=== PATIENT | male | born 1965 | race Caucasian/White ===

== ENCOUNTER 2018-02-26 11:20 | Observation (INO) | payer MEDICAID ==
[~2018-02-26] VITALS: Ht 182.9 cm; Wt 113.6 kg
[~2018-02-26 11:20] MED LIST: ALBU8HFA PO; AMBR10TA3 PO; ASPI81TA30 PO; DIGO125T97 PO; FURO-150 PO; INDO25CA18 PO; PANT40TA4 PO; POTA8TAB3 PO; PRED20TA PO; TADA5TAB3 PO
[2018-02-26] MEDS ORDERED: iohexol 350MG/ML 100ml bottle IV ONE (11:47)
[2018-02-26 11:58] LABS: INR 1.1 INR; PARTIAL THROMBOPLASTIN TIME 27 SECONDS (22-32); PROTHROMBIN TIME 10.7 SECONDS (9.0-12.0)
[2018-02-26 12:01] LABS: BASOPHILS # (AUTO) 0.1 X10'3 (0-0.2); EOSINOPHILS # (AUTO) 0.2 X10'3 (0-0.9); EOSINOPHILS % (AUTO) 2.6 % (0-6); LYMPHOCYTES # (AUTO) 1.2 X10'3 (1.1-4.8); LYMPHOCYTES % (AUTO) 15.1 % (21-51); MEAN CORPUSCULAR HEMOGLOBIN 30.7 PG (27.0-31.0); MEAN CORPUSCULAR HGB CONC 33.1 % (33.0-36.5); MEAN CORPUSCULAR VOLUME 92.6 FL (78-98); MEAN PLATELET VOLUME 9.8 FL (7.4-10.4); MONOCYTES # (AUTO) 0.6 X10'3 (0-0.9); MONOCYTES % (AUTO) 7.9 % (2-12); NEUTROPHILS # (AUTO) 5.6 X10'3 (1.8-7.7); NEUTROPHILS % (AUTO) 73.4 % (42-75); PLATELET COUNT 200 X10'3 (140-440); RED BLOOD COUNT 6.62 X10'6 (4.70-6.10); RED CELL DISTRIBUTION WIDTH 13.9 % (11.5-14.5); WHITE BLOOD COUNT 7.6 X10'3 (4.5-11.0)
[2018-02-26 12:06] LABS: HEMATOCRIT 61.3 % (42.0-52.0); HEMOGLOBIN 20.3 g/dl (14.0-17.9)
[2018-02-26 12:10] LABS: ALANINE AMINOTRANSFERASE 76 U/L (12-78); ALBUMIN 3.6 G/DL (3.4-5.0); ALBUMIN/GLOBULIN RATIO 1.1 (1.1-1.5); ALKALINE PHOSPHATASE 101 IU/L (46-116); ANION GAP 5 (8-16); ASPARTATE AMINO TRANSFERASE 53 U/L (10-37); BILIRUBIN,TOTAL 1.1 MG/DL (0.1-1.0); BLOOD UREA NITROGEN 15 MG/DL (7-18); BUN/CREATININE RATIO 13.5 (5.4-32.0); CALCIUM 8.8 MG/DL (8.5-10.1); CHLORIDE 102 MMOL/L (99-107); CREATININE 1.11 MG/DL (0.60-1.10); GLUCOSE 123 MG/DL (70-104); SODIUM 139 MMOL/L (135-145); TOTAL CARBON DIOXIDE 32.5 MMOL/L (24-32); eGFR 69 ML/MIN
[2018-02-26 12:14] LABS: TROPONIN I < 0.04 NG/ML (0.0-0.05)
[2018-02-26 12:17] LABS: POTASSIUM 4.3 MMOL/L (3.5-5.1)
[2018-02-26 13:17] LABS: INR 1.1 INR; PARTIAL THROMBOPLASTIN TIME 26 SECONDS (22-32); PROTHROMBIN TIME 10.7 SECONDS (9.0-12.0)
[2018-02-26] MEDS ORDERED: normal saline 1000ML IV soln IVB ONE (14:15)
[2018-02-26] MEDS ORDERED: POTA20PA40 (15:09)
[2018-02-26] MEDS ORDERED: TADA5TAB2 PO (15:09)
[2018-02-26] MEDS ORDERED: LISI-600 PO (15:09)
[2018-02-26] MEDS ORDERED: MELO-102 PO (15:09)
[2018-02-26] MEDS ORDERED: potassium Cl 20 mEq SR tablet PO PRN ×2 (17:10)
[2018-02-26] MEDS ORDERED: potassium Cl 40MEQ/NS 500ml 500 ML IV PRN ×2 (17:10)
[2018-02-26] MEDS ORDERED: magnesium 1gm/100ml D5W IVPB 100 ML IV PRN (17:10)
[2018-02-26] MEDS ORDERED: magnesium Cl slow-release 64mg tablet PO PRN (17:10)
[2018-02-26] MEDS ORDERED: acetaminophen 325mg tablet PO PRN ×2 (17:10)
[2018-02-26] MEDS ORDERED: magnesium hydroxide 30ml (MOM) UD suspension PO PRN (17:10)
[2018-02-26] MEDS ORDERED: magnesium 4gm in 100ml NS 100 ML IV PRN (17:10)
[2018-02-26] MEDS ORDERED: mag hydrox/Alum hydrox/simeth 30ml oral suspension PO PRN (17:10)
[2018-02-26] MEDS ORDERED: ondansetron/PF 4mg/2ml inj IV PRN (17:10)
[2018-02-26] MEDS: normal saline 1000ml 1,000 ML IV SCH ×2 (17:23→20:58)
[2018-02-26 17:57] LABS: HEMOGLOBIN A1C 5.5 % (4.5-6.2)
[2018-02-26] MEDS ORDERED: LORazepam 2 mg/ml vial IV ONE (18:00)
[2018-02-26] MEDS ORDERED: aspirin 81mg tab.chew PO ONE (19:35)
[2018-02-26] MEDS ORDERED: guaiFENesin/codeine phos 10ml UD oral syrup PO ONE (20:15)
[2018-02-26] MEDS ORDERED: albuterol 2.5 MG/3 ML nebule NEB ONE (20:15)
[2018-02-26 21:00] VITALS: BP 158/99
[2018-02-26] MEDS ORDERED: temazepam 15mg capsule PO PRN (21:00)
[2018-02-26] MEDS ORDERED: HYDROmorphone 1 mg/ml syringe IV PRN (21:25)
[2018-02-26] MEDS ORDERED: HYDROcodone/acetaminophen 10/325mg tab PO PRN (21:25)
[2018-02-26] MEDS: morphine 4 MG/ML inj SYRINge IV PRN (21:42)
[2018-02-27] MEDS: morphine 4 MG/ML inj SYRINge IV PRN ×5 (01:55→23:03)
[2018-02-27 02:00] VITALS: BP 139/89
[2018-02-27 06:00] VITALS: BP 136/80
[2018-02-27 06:16] LABS: HEMATOCRIT 54.4 % (42.0-52.0); HEMOGLOBIN 17.9 g/dl (14.0-17.9); MEAN CORPUSCULAR HEMOGLOBIN 30.5 PG (27.0-31.0); MEAN CORPUSCULAR VOLUME 92.7 FL (78-98); MEAN PLATELET VOLUME 9.7 FL (7.4-10.4); PLATELET COUNT 201 X10'3 (140-440); RED BLOOD COUNT 5.87 X10'6 (4.70-6.10); RED CELL DISTRIBUTION WIDTH 14.1 % (11.5-14.5); WHITE BLOOD COUNT 10.8 X10'3 (4.5-11.0)
[2018-02-27 07:30] LABS: ANION GAP 9 (8-16); BLOOD UREA NITROGEN 13 MG/DL (7-18); BUN/CREATININE RATIO 13.5 (5.4-32.0); CALCIUM 8.1 MG/DL (8.5-10.1); CHLORIDE 104 MMOL/L (99-107); CHOL/HDL RATIO 4.7 (0.00-4.99); CHOLESTEROL 180 MG/DL (0-200); CREATININE 0.96 MG/DL (0.60-1.10); GLUCOSE 116 MG/DL (70-104); HDL CHOLESTEROL 38 MG/DL (35-60); LDL CHOLESTEROL 106 MG/DL (50-100); MAGNESIUM 1.9 MG/DL (1.5-2.4); POTASSIUM 3.9 MMOL/L (3.5-5.1); SODIUM 140 MMOL/L (135-145); TOTAL CARBON DIOXIDE 27.2 MMOL/L (24-32); TRIGLYCERIDES 272 MG/DL (20-135); eGFR 82 ML/MIN
[2018-02-27] MEDS: K and/or MAG REPLACEMENT MC SCH (08:00)
[2018-02-27] MEDS: aspirin 325mg tablet PO SCH (09:26)
[2018-02-27] MEDS: digoxin 125mcg (0.125mg) tablet PO SCH (09:28)
[2018-02-27 10:00] VITALS: BP 152/103
[2018-02-27 14:50] VITALS: BP 160/112
[2018-02-27] MEDS ORDERED: hydrALAZINE 20mg/ml inj. IV PRN (15:00)
[2018-02-27] MEDS ORDERED: hydrALAZINE 20mg/ml inj. IV ONE (15:00)
[2018-02-27] MEDS: atorvastatin 20mg tablet PO SCH (15:30)
[2018-02-27] MEDS: lisinopril 20mg tablet PO SCH (15:36)
[2018-02-27 16:19] LABS: CLARITY,URINE CLEAR (Clear); COLOR,URINE YELLOW (Yellow); GLUCOSE, URINE NEGATIVE (Neg); KETONES,URINE NEGATIVE (Neg); LEUKOCYTE ESTERASE ,URINE NEGATIVE (Neg); NITRITES, URINE NEGATIVE (Neg); OCCULT BLOOD,URINE NEGATIVE (Neg); PROTEIN,URINE NEGATIVE (Neg); UA COLLECTION TYPE VOIDED; UROBILINOGEN,URINE 0.2 E.U/dL (0.2-1.0)
[2018-02-27 16:35] VITALS: BP 125/81
[2018-02-27 16:46] LABS: URINE AMPHETAMINE SCREEN NEGATIVE (Neg); URINE BARBITUATE SCREEN NEGATIVE (Neg); URINE BENZODIAZEPINES SCREEN NEGATIVE (Neg); URINE CANNABINOID SCREEN NEGATIVE (Neg); URINE COCAINE SCREEN NEGATIVE (Neg); URINE METHADONE SCREEN NEGATIVE (Neg); URINE OPIATE SCREEN POSITIVE (Neg); URINE PHENCYCLIDINE SCREEN NEGATIVE (Neg)
[2018-02-27 16:53] LABS: ETHANOL < 0.010 GM/DL (0.0-0.010)
[2018-02-27 20:00] VITALS: BP 144/87
[2018-02-27] MEDS: carVEDilol 12.5mg tablet PO SCH (20:05)
[2018-02-27] MEDS: enoxaparin 40mg/0.4ml syringe SUBCUT SCH (20:06)
[2018-02-27] MEDS: sildenafil citrate 20mg tablet PO SCH (21:30)
[2018-02-27] MEDS: normal saline 1000ml 1,000 ML IV SCH (21:42)
[2018-02-28] VITALS: BP 156/90
[2018-02-28 04:00] VITALS: BP 155/94
[2018-02-28] MEDS: morphine 4 MG/ML inj SYRINge IV PRN (05:38)
[2018-02-28 06:00] VITALS: BP 155/94
[2018-02-28 06:59] LABS: HEMATOCRIT 53.4 % (42.0-52.0); HEMOGLOBIN 17.8 g/dl (14.0-17.9); MEAN CORPUSCULAR HEMOGLOBIN 30.8 PG (27.0-31.0); MEAN CORPUSCULAR HGB CONC 33.3 % (33.0-36.5); MEAN CORPUSCULAR VOLUME 92.6 FL (78-98); MEAN PLATELET VOLUME 9.7 FL (7.4-10.4); PLATELET COUNT 187 X10'3 (140-440); RED BLOOD COUNT 5.77 X10'6 (4.70-6.10); RED CELL DISTRIBUTION WIDTH 13.9 % (11.5-14.5); WHITE BLOOD COUNT 10.6 X10'3 (4.5-11.0)
[2018-02-28] MEDS: carVEDilol 12.5mg tablet PO SCH (07:08)
[2018-02-28] MEDS: atorvastatin 20mg tablet PO SCH (07:09)
[2018-02-28] MEDS: digoxin 125mcg (0.125mg) tablet PO SCH (07:09)
[2018-02-28] MEDS: aspirin 325mg tablet PO SCH (07:10)
[2018-02-28] MEDS: sildenafil citrate 20mg tablet PO SCH ×2 (07:10→13:51)
[2018-02-28] MEDS: lisinopril 20mg tablet PO SCH (07:10)
[2018-02-28] MEDS: enoxaparin 40mg/0.4ml syringe SUBCUT SCH (07:11)
[2018-02-28 07:24] LABS: ANION GAP 7 (8-16); BLOOD UREA NITROGEN 12 MG/DL (7-18); BUN/CREATININE RATIO 11.5 (5.4-32.0); CALCIUM 8.3 MG/DL (8.5-10.1); CHLORIDE 103 MMOL/L (99-107); CREATININE 1.04 MG/DL (0.60-1.10); GLUCOSE 134 MG/DL (70-104); MAGNESIUM 1.9 MG/DL (1.5-2.4); POTASSIUM 3.9 MMOL/L (3.5-5.1); SODIUM 137 MMOL/L (135-145); TOTAL CARBON DIOXIDE 26.7 MMOL/L (24-32); eGFR 74 ML/MIN
[2018-02-28] MEDS: K and/or MAG REPLACEMENT MC SCH (08:00)
[2018-02-28 10:00] VITALS: BP 144/83
[2018-02-28] MEDS ORDERED: ALBU8.5H8 INH (14:22)
[2018-02-28] MEDS ORDERED: ASPI-611 PO (14:22)
[2018-02-28] MEDS ORDERED: CARV-50 PO (14:22)
[2018-02-28] MEDS ORDERED: ATOR20TA66 PO (14:22)
[2018-02-28] MEDS ORDERED: PANT40TA4 PO (14:43)
== END 2018-02-28 15:10 | disposition home or self-care (01) ==
LOC: ER 11:20 → ED HOLD 17:06 → ORTHO 4S 20:41
PROVIDERS: ADMIT Family Medicine; ATTEND Family Medicine
DX: I65.03 Occlusion and stenosis of bilateral vertebral arteries (principal); F15.10 Other stimulant abuse, uncomplicated; F12.90 Cannabis use, unspecified, uncomplicated; I11.0 Hypertensive heart disease with heart failure; I50.9 Heart failure, unspecified; I27.20 Pulmonary hypertension, unspecified; J44.9 Chronic obstructive pulmonary disease, unspecified; E11.9 Type 2 diabetes mellitus without complications; E78.00 Pure hypercholesterolemia, unspecified; K42.9 Umbilical hernia without obstruction or gangrene; I47.2 Ventricular tachycardia; K44.9 Diaphragmatic hernia without obstruction or gangrene; D45 Polycythemia vera; M10.9 Gout, unspecified; Z72.0 Tobacco use; Z91.19 Patient's noncompliance with other medical treatment and regimen; Z79.899 Other long term (current) drug therapy
CPT/HCPCS: 36415; 70496; 70498; 70544; 70551; 71045; 71250; 74022; 80048; 80053; 80061; 80162; 80305; 80320; 81003; 83036; 83735; 84443; 84484; 85025; 85027; 85610; 85730; 87070; 93005; 93306; 93880; 94640; 94760; 96372; 96374; 96375; 96376; 97116; 97161; 97530; 97535; 99284; G0378; J0360; J1170; J2060; J2270; J7030; Q9967; J1650